=== PATIENT | female | born 1955 | race Caucasian/White ===

== ENCOUNTER → 2016-09-11 | Outpatient (REF) | payer OTHER, BC | LOC: M SFHCPLAZ 15:39 | PROVIDERS: ATTEND Nurse Practitioner Family | DX: Z11.59 Encounter for screening for other viral diseases (principal) ==

== ENCOUNTER → 2016-09-14 | Outpatient (REF) | payer BC | LOC: M SFHCPLAZ 15:42 | PROVIDERS: ATTEND Nurse Practitioner Family | DX: Z11.59 Encounter for screening for other viral diseases (principal) ==

== ENCOUNTER → 2017-04-19 | Outpatient (REF) | payer BC ==
[2017-04-19 13:48] LABS: ALBUMIN 3.9 GM/DL (3.2-5.2); ALKALINE PHOSPHATASE 74 U/L (45-117); ALT/SGPT 31 U/L (12-78); ANION GAP 9 MEQ/L (8-16); AST/SGOT 22 U/L (7-37); BILIRUBIN,TOTAL 0.6 MG/DL (0.2-1.0); BLOOD UREA NITROGEN 12 MG/DL (7-18); CALCIUM LEVEL 9.2 MG/DL (8.8-10.2); CARBON DIOXIDE LEVEL 30 MEQ/L (21-32); CHLORIDE LEVEL 100 MEQ/L (98-107); CHOLESTEROL LEVEL 305 MG/DL (<200); CREATININE FOR GFR 0.71 MG/DL (0.55-1.02); GLOMERULAR FILTRATION RATE > 60.0 (>45); GLUCOSE, FASTING 105 MG/DL (80-110); POTASSIUM SERUM 4.5 MEQ/L (3.5-5.1); SODIUM LEVEL 139 MEQ/L (136-145); TOTAL PROTEIN 7.8 GM/DL (6.4-8.2); TRIGLYCERIDES LEVEL 193 MG/DL (<150)
== END ==
LOC: M SFHCPLAZ 12:36
PROVIDERS: ATTEND Nurse Practitioner Family
DX: E78.2 Mixed hyperlipidemia (principal); E04.1 Nontoxic single thyroid nodule; E55.9 Vitamin D deficiency, unspecified

== ENCOUNTER → 2017-07-19 | Outpatient (REF) | payer BC ==
[2017-07-19 12:44] LABS: ALBUMIN 3.8 GM/DL (3.2-5.2); ALBUMIN/GLOBULIN RATIO 1.15 (1.00-1.93); ALKALINE PHOSPHATASE 68 U/L (45-117); ALT/SGPT 40 U/L (12-78); ANION GAP 6 MEQ/L (8-16); AST/SGOT 19 U/L (7-37); BILIRUBIN,TOTAL 0.6 MG/DL (0.2-1.0); BLOOD UREA NITROGEN 16 MG/DL (7-18); CALCIUM LEVEL 8.8 MG/DL (8.8-10.2); CARBON DIOXIDE LEVEL 30 MEQ/L (21-32); CHLORIDE LEVEL 104 MEQ/L (98-107); CHOLESTEROL LEVEL 188 MG/DL (<200); CHOLESTEROL RISK RATIO 2.764 (<5); CREATININE FOR GFR 0.57 MG/DL (0.55-1.30); GLOMERULAR FILTRATION RATE > 60.0 (>45); GLUCOSE, FASTING 99 MG/DL (70-100); HDL CHOLESTEROL 68 MG/DL (>40); NON-HDL-C 120 MG/DL; POTASSIUM SERUM 4.2 MEQ/L (3.5-5.1); SODIUM LEVEL 140 MEQ/L (136-145); TOTAL PROTEIN 7.1 GM/DL (6.4-8.2); TRIGLYCERIDES LEVEL 140 MG/DL (<150)
[2017-07-19 15:06] LABS: TOTAL 25(OH) VITAMIN D 39.1 NG/ML (30.0-100.0)
== END ==
LOC: M SFHCPLAZ 08:18
DX: E78.2 Mixed hyperlipidemia (principal); E55.9 Vitamin D deficiency, unspecified
CPT/HCPCS: 80053

== ENCOUNTER → 2017-09-13 | Outpatient (CLI) | payer BC | LOC: M WHC 10:25 | DX: Z12.31 Encounter for screening mammogram for malignant neoplasm of breast (principal); Z78.0 Asymptomatic menopausal state; Z80.3 Family history of malignant neoplasm of breast ==

== ENCOUNTER → 2018-09-17 | Outpatient (REF) | payer BC | LOC: M SFHCPLAZ 17:29 | PROVIDERS: ATTEND Nurse Practitioner Family | DX: Z12.4 Encounter for screening for malignant neoplasm of cervix (principal) ==

== ENCOUNTER → 2018-09-17 | Outpatient (CLI) | payer BC ==
--- NOTE | 2018-09-17 14:27 | REPMRS ---
Patient History The patient states she had a clinical breast exam in 08/2018. Family history of breast cancer in paternal grandmother. 3D TOMOSYNTHESIS WAS PERFORMED. Digital Woman Screen Mammo: September 17, 2018 - Exam #: [id number] Bilateral CC and MLO view(s) were taken. Technologist: Aisha Raza, Technologist Prior study comparison: September 13, 2017, digital woman screen mammo performed at [facility]. April 04, 2016, digital woman screen mammo performed at [facility]. FINDINGS: The breast tissue is heterogeneously dense. This may lower the sensitivity of mammography. There has been no change in the appearance of the mammogram from the prior studies. There is a moderate amount of residual fibroglandular tissue which is fairly symmetric. There is no interval development of dominant mass, areas of architectural distortion, or clustered microcalcification typical of malignancy. Assessment: BI-RADS/ACR category 1 mammogram. Negative Mammogram. Recommendation Routine screening mammogram in 1 year (for women over age 40). This mammogram was interpreted with the aid of an FDA-approved computer-aided dectection system. Electronically Signed By: Christoph Fernandes MD 09/17/18 [id number]
== END ==
LOC: M WHC 11:55
PROVIDERS: ATTEND Nurse Practitioner Family
DX: Z12.31 Encounter for screening mammogram for malignant neoplasm of breast (principal); Z80.3 Family history of malignant neoplasm of breast

== ENCOUNTER → 2018-09-27 | Outpatient (CLI) | payer BC ==
--- NOTE | 2018-09-27 14:25 | REP ---
REASON: Pain and swelling secondary to strain. There are no priors. I have been given no history of trauma whatsoever. There is mild to moderate disc space narrowing at every level. Flexion and extension is limited radiographically. The facet joints are well aligned bilaterally. The intervertebral foramina appear ample bilaterally. Vertebral body height and alignment is within normal limits. Degenerative facet and ureterovesical junction changes are present mildly to moderately at every level. IMPRESSION: Chronic changes, as described above. The dens cannot be effectively evaluated secondary to the superimposition of osseous structures and/or dentition on all views. Although this plain radiographic evaluation of the cervical spine shows no evidence of a fracture, it should be remembered that CT is much more sensitive than plain radiography of the C-spine in detecting fractures. If this examination was ordered to rule out a fracture, then CT of the cervical spine is recommended. Electronically Signed by Kg Olvera DO 09/27/2018 02:43 P
== END ==
LOC: M WUC 10:20
PROVIDERS: ATTEND Physician Assistant
DX: M50.30 Other cervical disc degeneration, unspecified cervical region (principal)

== ENCOUNTER → 2018-10-10 | Outpatient (REF) | payer BC | LOC: M LAB REF 11:46 | PROVIDERS: ATTEND Surgery | DX: L72.3 Sebaceous cyst (principal) ==

== ENCOUNTER → 2018-10-17 | Outpatient (REF) | payer BC | LOC: M LAB REF 09:37 | PROVIDERS: ATTEND Surgery | DX: L82.1 Other seborrheic keratosis (principal) ==

== ENCOUNTER 2018-12-16 11:45 | Day surgery (SDC) | payer BC ==
[~2018-12-16] VITALS: Ht 160 cm; Wt 75.3 kg
[~2018-12-16 11:45] MED LIST: ATOR1TAB19 PO; LIDOCAINE 2% INJ 100 MG/5 ML SDV (FOR ANES.) As Ordered ONE; NS 1,000 ML IV ONE; PROPOFOL 200 MG/20 ML VIAL As Ordered ONE; VITAD1000T PO
[2018-12-16] MEDS ORDERED: PROPOFOL 500 MG/50 ML VIAL As Ordered ONE (13:50)
--- NOTE | 2018-12-16 14:02 | ROOR ---
Patient Name: Sathish Hernandez Procedure Date: 12/16/2018 1:34 PM Date of : 1955 Age: 63 Room: [facility] Gender: Female Note Status: Finalized Procedure: Total Colonoscopy to Cecum + Cold Snare Polypectomy + Hemoclips Indications: Screening for colorectal malignant neoplasm Providers: Piero Burnett MD Referring MD: Leigha Hartman NP Requesting Provider: Medicines: Monitored Anesthesia Care Complications: No immediate complications. Procedure: Pre-Anesthesia Assessment: - The heart rate, respiratory rate, oxygen saturations, blood pressure, adequacy of pulmonary ventilation, and response to care were monitored throughout the procedure. The Colonoscope was introduced through the anus and advanced to the cecum, identified by appendiceal orifice and ileocecal valve. The colonoscopy was performed without difficulty. The patient tolerated the procedure well. The quality of the bowel preparation was excellent. Findings: The perianal and digital rectal examinations were normal. Non-bleeding internal hemorrhoids were found during retroflexion. The hemorrhoids were small and Grade I (internal hemorrhoids that do not prolapse). Multiple small and large-mouthed diverticula were found in the recto-sigmoid colon, sigmoid colon and descending colon. A medium polyp was found at 10 cm proximal to the anus. The polyp was semi-pedunculated. The polyp was removed with a cold snare. Resection and retrieval were complete. To prevent bleeding after the polypectomy, one hemostatic clip was successfully placed (MR conditional). There was no bleeding at the end of the procedure. A diminutive polyp was found in the transverse colon. The polyp was sessile. The polyp was removed with a cold snare. Resection and retrieval were complete. The exam was otherwise without abnormality on direct and retroflexion views. Impression: - Non-bleeding internal hemorrhoids. - Diverticulosis in the recto-sigmoid colon, in the sigmoid colon and in the descending colon. - One medium polyp at 10 cm proximal to the anus, removed with a cold snare. Resected and retrieved. Clip (MR conditional) was placed. - One diminutive polyp in the transverse colon, removed with a cold snare. Resected and retrieved. - The examination was otherwise normal on direct and retroflexion views. - The exam was otherwise normal to the cecum. Recommendation: - Patient has a contact number available for emergencies. The signs and symptoms of potential delayed complications were discussed with the patient. Return to normal activities tomorrow. Written discharge instructions were provided to the patient. - High fiber diet. - Discharge patient to home. - Continue present medications. - Await pathology results. - Telephone GI clinic for pathology results in 1 week. - Repeat colonoscopy in 5 years for surveillance based on pathology results. - Return to referring physician. - Check Portal Online for Path Results.([email or web address]) - The findings and recommendations were discussed with the patient's family. Piero Burnett MD Piero Burnett MD 12/16/2018 2:01:56 PM Electronically signed by Piero Burnett MD Number of Addenda: 0 Note Initiated On: 12/16/2018 1:34 PM Estimated Blood Loss: Estimated blood loss: none.
[2018-12-16 14:26] VITALS: BP 103/67
== END 2018-12-16 14:29 | disposition home or self-care (01) ==
LOC: M OPP 11:45
PROVIDERS: ATTEND Internal Medicine Gastroenterology
DX: Z12.11 Encounter for screening for malignant neoplasm of colon (principal); K64.0 First degree hemorrhoids; K57.30 Diverticulosis of large intestine without perforation or abscess without bleeding; D12.8 Benign neoplasm of rectum; D12.3 Benign neoplasm of transverse colon; E78.5 Hyperlipidemia, unspecified; K44.9 Diaphragmatic hernia without obstruction or gangrene; K21.9 Gastro-esophageal reflux disease without esophagitis; R12 Heartburn; M19.90 Unspecified osteoarthritis, unspecified site; R06.83 Snoring; F17.210 Nicotine dependence, cigarettes, uncomplicated; Z79.899 Other long term (current) drug therapy

== ENCOUNTER → 2019-01-23 | Outpatient (REF) | payer BC ==
[~2019-01-23] MED LIST changes: +CHOL100029 PO; -LIDOCAINE 2% INJ 100 MG/5 ML SDV (FOR ANES.) As Ordered ONE; -NS 1,000 ML IV ONE; -PROPOFOL 200 MG/20 ML VIAL As Ordered ONE; -VITAD1000T PO
[2019-01-23 13:38] LABS: ALBUMIN 3.9 GM/DL (3.2-5.2); ALT/SGPT 32 U/L (12-78); BILIRUBIN,TOTAL 0.4 MG/DL (0.2-1.0); BLOOD UREA NITROGEN 15 MG/DL (7-18); CALCIUM LEVEL 9.7 MG/DL (8.8-10.2); CARBON DIOXIDE LEVEL 29 MEQ/L (21-32); CHLORIDE LEVEL 103 MEQ/L (98-107); CHOLESTEROL LEVEL 209 MG/DL (<200); CREATININE FOR GFR 0.62 MG/DL (0.55-1.30); GLOMERULAR FILTRATION RATE > 60.0 (>45); GLUCOSE, FASTING 108 MG/DL (70-100); HDL CHOLESTEROL 86 MG/DL (>40); LDL CHOLESTEROL 103 MG/DL (<100); NON-HDL-C 123 MG/DL; POTASSIUM SERUM 4.4 MEQ/L (3.5-5.1); SODIUM LEVEL 139 MEQ/L (136-145); TOTAL 25(OH) VITAMIN D 40.9 NG/ML (30.0-100.0); TOTAL PROTEIN 7.4 GM/DL (6.4-8.2); TRIGLYCERIDES LEVEL 100 MG/DL (<150)
== END ==
LOC: M SFHCPLAZ 09:48
PROVIDERS: ATTEND Nurse Practitioner Family
DX: E78.2 Mixed hyperlipidemia (principal); E55.9 Vitamin D deficiency, unspecified

== ENCOUNTER → 2019-09-18 | Outpatient (CLI) | payer BC ==
--- NOTE | 2019-09-18 12:37 | REPMRS ---
Patient History The patient states she had a clinical breast exam in August 2019. Family history of breast cancer in paternal grandmother. Digital Woman Screen Mammo: September 18, 2019 - Exam #: [id number] Bilateral CC and MLO view(s) were taken. Technologist: Marlin Connell, Technologist Prior study comparison: September 17, 2018, bilateral digital woman screen mammo performed at [facility]. September 13, 2017, digital woman screen mammo performed at [facility]. April 04, 2016, digital woman screen mammo performed at [facility]. FINDINGS: There are scattered fibroglandular densities. The Volpara volumetric breast density category is: B. There is a moderate amount of residual fibroglandular tissue which is fairly symmetric. There is no interval development of dominant mass, architectural distortion, or grouped microcalcification typical of malignancy. There has been no change in the appearance of the mammogram from the prior studies. 3-D tomosynthesis shows no additional findings. Assessment: BI-RADS/ACR category 1 mammogram. Negative Mammogram. Recommendation Routine screening mammogram of both breasts in 1 year (for women over age 40). This patient's Lifetime Breast Cancer RIsk is estimated at 10.1 %. This mammogram was interpreted with the aid of an FDA-approved computer-aided dectection system. Electronically Signed By: Ryan Mendez MD 09/18/19 [id number]
== END ==
LOC: M WHC 11:15
PROVIDERS: ATTEND Nurse Practitioner Family
DX: Z12.31 Encounter for screening mammogram for malignant neoplasm of breast (principal)

== ENCOUNTER → 2019-12-11 | Outpatient (REF) | payer BC | LOC: M PLALAB 09:47 | PROVIDERS: ATTEND Nurse Practitioner Family | DX: M79.10 Myalgia, unspecified site (principal); E78.2 Mixed hyperlipidemia; E04.1 Nontoxic single thyroid nodule; E55.9 Vitamin D deficiency, unspecified ==

== ENCOUNTER → 2020-02-18 | Outpatient (CLI) | payer BC ==
[2020-02-18 14:12] LABS: ALBUMIN 3.7 GM/DL (3.2-5.2); ALT/SGPT 39 U/L (12-78); BILIRUBIN,TOTAL 0.6 MG/DL (0.2-1.0); BLOOD UREA NITROGEN 12 MG/DL (7-18); CALCIUM LEVEL 9.4 MG/DL (8.8-10.2); CARBON DIOXIDE LEVEL 31 MEQ/L (21-32); CHLORIDE LEVEL 103 MEQ/L (98-107); CHOLESTEROL LEVEL 181 MG/DL (<200); CHOLESTEROL RISK RATIO 2.549 (<5); CPK CREATINE PHOSPHOKINASE 75 U/L (26-192); CREATININE FOR GFR 0.68 MG/DL (0.55-1.30); GLOMERULAR FILTRATION RATE > 60.0 (>45); GLUCOSE, FASTING 105 MG/DL (70-100); HDL CHOLESTEROL 71 MG/DL (>40); LDL CHOLESTEROL 88 MG/DL (<100); NON-HDL-C 110 MG/DL; POTASSIUM SERUM 4.5 MEQ/L (3.5-5.1); SODIUM LEVEL 138 MEQ/L (136-145); TOTAL PROTEIN 7.3 GM/DL (6.4-8.2); TRIGLYCERIDES LEVEL 111 MG/DL (<150)
== END ==
LOC: M PLALAB 10:10
PROVIDERS: ATTEND Nurse Practitioner Family
DX: E78.2 Mixed hyperlipidemia (principal)

== ENCOUNTER → 2020-04-25 | Outpatient (CLI) | payer BC ==
[~2020-04-25] MED LIST changes: +D31000TA2 PO
== END ==
LOC: M LABSMTC 08:36
PROVIDERS: ATTEND Anesthesiology
DX: Z11.59 Encounter for screening for other viral diseases (principal)

== ENCOUNTER 2020-04-30 11:09 | Day surgery (SDC) | payer BC ==
[~2020-04-30] VITALS: Ht 157.5 cm; Wt 74.4 kg
[~2020-04-30 11:09] MED LIST changes: +LIDOCAINE 2% 100MG/5ML SDV (FOR ANES.) As Ordered ONE; +NS 1,000 ML IV ONE; +propofoL 200 MG/20 ML VIAL As Ordered ONE
[2020-04-30] MEDS ORDERED: propofoL 200 MG/20 ML VIAL As Ordered ONE (11:49)
--- NOTE | 2020-04-30 12:03 | ROOR ---
Patient Name: Sathish Hernandez Procedure Date: 04/30/2020 11:42 AM Date of : 1955 Age: 64 Room: [facility] Gender: Female Note Status: Finalized Procedure: Total Colonoscopy to Cecum Indications: High risk colon cancer surveillance: Personal history of adenoma with villous component Providers: Piero Burnett MD Referring MD: Leigha Hartman NP Requesting Provider: Medicines: Monitored Anesthesia Care Complications: No immediate complications. Procedure: Pre-Anesthesia Assessment: - The heart rate, respiratory rate, oxygen saturations, blood pressure, adequacy of pulmonary ventilation, and response to care were monitored throughout the procedure. The Colonoscope was introduced through the anus and advanced to the cecum, identified by appendiceal orifice and ileocecal valve. The colonoscopy was performed without difficulty. The patient tolerated the procedure well. The quality of the bowel preparation was excellent. Findings: The perianal and digital rectal examinations were normal. Non-bleeding internal hemorrhoids were found during retroflexion. The hemorrhoids were small and Grade I (internal hemorrhoids that do not prolapse). Multiple small and large-mouthed diverticula were found in the recto-sigmoid colon, sigmoid colon and descending colon. The exam was otherwise without abnormality on direct and retroflexion views. Impression: - Non-bleeding internal hemorrhoids. - Diverticulosis in the recto-sigmoid colon, in the sigmoid colon and in the descending colon. - The examination was otherwise normal on direct and retroflexion views. - No specimens collected. - The exam was otherwise normal to the cecum. Recommendation: - Patient has a contact number available for emergencies. The signs and symptoms of potential delayed complications were discussed with the patient. Return to normal activities tomorrow. Written discharge instructions were provided to the patient. - High fiber diet. - Discharge patient to home. - Continue present medications. - Repeat colonoscopy in 5 years for surveillance. - Return to referring physician. - The findings and recommendations were discussed with the patient. Procedure Code(s): --- Professional --- G0105, Colorectal cancer screening; colonoscopy on individual at high risk Diagnosis Code(s): --- Professional --- Z86.010, Personal history of colonic polyps K64.0, First degree hemorrhoids K57.30, Diverticulosis of large intestine without perforation or abscess without bleeding CPT copyright 2019 [employer]. All rights reserved. The codes documented in this report are preliminary and upon hr administrator review may be revised to meet current compliance requirements. Piero Burnett MD Piero Burnett MD 04/30/2020 12:03:02 PM Electronically signed by Piero Burnett MD Number of Addenda: 0 Note Initiated On: 04/30/2020 11:42 AM Estimated Blood Loss: Estimated blood loss: none.
[2020-04-30 12:36] VITALS: BP 106/51
== END 2020-04-30 12:38 | disposition home or self-care (01) ==
LOC: M OPP 11:09
PROVIDERS: ATTEND Internal Medicine Gastroenterology
DX: Z12.11 Encounter for screening for malignant neoplasm of colon (principal); Z86.010 Personal history of colon polyps; K64.0 First degree hemorrhoids; K57.30 Diverticulosis of large intestine without perforation or abscess without bleeding; E78.5 Hyperlipidemia, unspecified; K44.9 Diaphragmatic hernia without obstruction or gangrene; M19.90 Unspecified osteoarthritis, unspecified site; Z79.899 Other long term (current) drug therapy

== ENCOUNTER → 2020-09-10 | Outpatient (REF) | payer MEDICARE ==
[~2020-09-10] MED LIST changes: -LIDOCAINE 2% 100MG/5ML SDV (FOR ANES.) As Ordered ONE; -NS 1,000 ML IV ONE; -propofoL 200 MG/20 ML VIAL As Ordered ONE
[2020-09-10 14:09] LABS: ALBUMIN 4.2 GM/DL (3.2-5.2); ALT/SGPT 35 U/L (12-78); BILIRUBIN,TOTAL 0.6 MG/DL (0.2-1.0); BLOOD UREA NITROGEN 15 MG/DL (7-18); CALCIUM LEVEL 9.9 MG/DL (8.8-10.2); CARBON DIOXIDE LEVEL 30 MEQ/L (21-32); CHLORIDE LEVEL 102 MEQ/L (98-107); CREATININE FOR GFR 0.66 MG/DL (0.55-1.30); GLOMERULAR FILTRATION RATE > 60.0 (>45); GLUCOSE, FASTING 106 MG/DL (70-100); POTASSIUM SERUM 4.1 MEQ/L (3.5-5.1); SODIUM LEVEL 137 MEQ/L (136-145); TOTAL PROTEIN 7.9 GM/DL (6.4-8.2)
[2020-09-10 14:16] LABS: TOTAL 25(OH) VITAMIN D 54.3 NG/ML (30.0-100.0)
== END ==
LOC: M PLALAB 10:50
PROVIDERS: ATTEND Nurse Practitioner Family
DX: E78.2 Mixed hyperlipidemia (principal); E55.9 Vitamin D deficiency, unspecified

== ENCOUNTER → 2020-10-12 | Outpatient (CLI) | payer MEDICARE ==
--- NOTE | 2020-10-12 15:44 | REPMRS ---
Patient History The patient states she had a clinical breast exam in August 2020. Family history of breast cancer in paternal grandmother. No breast complaints Patient signed the MRS sheet 1st covid vaccine 07/16/20-left arm-Moderna 2nd covid vaccine 08/10/20-left arm Best views possible on MLO's due to neck arthritis Priors on PACS Patient Identification Verified Digital Woman Screen Mammo: October 12, 2020 - Exam #: [id number] Bilateral CC and MLO view(s) were taken. Technologist: Beatriz Vanessa, Technologist Prior study comparison: September 18, 2019, bilateral digital woman screen mammo performed at [facility]. September 17, 2018, bilateral digital woman screen mammo performed at [facility]. September 13, 2017, digital woman screen mammo performed at [facility]. FINDINGS: There are scattered fibroglandular densities. The Volpara volumetric breast density category is: B. There is a moderate amount of residual fibroglandular tissue which is fairly symmetric. There is no interval development of dominant mass, architectural distortion, or grouped microcalcification typical of malignancy. There has been no change in the appearance of the mammogram from the prior studies. 3-D tomosynthesis shows no additional findings. Assessment: BI-RADS/ACR category 1 mammogram. Negative Mammogram. Recommendation Routine screening mammogram of both breasts in 1 year (for women over age 40). This patient's [facility] Lifetime Breast Cancer RIsk is estimated at 9.6 %. This mammogram was interpreted with the aid of an FDA-approved computer-aided dectection system. Electronically Signed By: Ryan Mendez MD 10/12/20 [id number]
== END ==
LOC: M WHC 13:25
PROVIDERS: ATTEND Nurse Practitioner Family
DX: Z12.31 Encounter for screening mammogram for malignant neoplasm of breast (principal)

== ENCOUNTER → 2021-08-11 | Outpatient (CLI) | payer MEDICARE ==
[~2021-08-11] MED LIST changes: -D31000TA2 PO; +VITA100093 PO
[2021-08-11 13:36] LABS: HEMOGLOBIN A1c 6.2 %
[2021-08-11 13:43] LABS: ALBUMIN 4.1 GM/DL (3.2-5.2); ALT/SGPT 31 U/L (12-78); BILIRUBIN,TOTAL 0.5 MG/DL (0.2-1.0); BLOOD UREA NITROGEN 13 MG/DL (7-18); CALCIUM LEVEL 9.6 MG/DL (8.8-10.2); CARBON DIOXIDE LEVEL 33 MEQ/L (21-32); CHLORIDE LEVEL 103 MEQ/L (98-107); CHOLESTEROL LEVEL 182 MG/DL (<200); CHOLESTEROL RISK RATIO 2.333 (<5); CREATININE FOR GFR 0.67 MG/DL (0.55-1.30); GLOMERULAR FILTRATION RATE > 60.0 (>45); GLUCOSE, FASTING 118 MG/DL (70-100); HDL CHOLESTEROL 78 MG/DL (>40); LDL CHOLESTEROL 83 MG/DL (<100); NON-HDL-C 104 MG/DL; POTASSIUM SERUM 4.3 MEQ/L (3.5-5.1); SODIUM LEVEL 139 MEQ/L (136-145); TOTAL PROTEIN 7.5 GM/DL (6.4-8.2); TRIGLYCERIDES LEVEL 105 MG/DL (<150)
== END ==
LOC: M PLALAB 10:06
DX: E78.2 Mixed hyperlipidemia (principal); R73.01 Impaired fasting glucose

== ENCOUNTER → 2021-10-27 | Outpatient (CLI) | payer MEDICARE | LOC: M WHC 09:21 | PROVIDERS: ATTEND Physician Assistant | DX: Z12.31 Encounter for screening mammogram for malignant neoplasm of breast (principal); Z13.820 Encounter for screening for osteoporosis; Z80.3 Family history of malignant neoplasm of breast; M85.89 Other specified disorders of bone density and structure, multiple sites ==

== ENCOUNTER → 2022-07-27 | Outpatient (CLI) | payer MEDICARE ==
[2022-07-27 14:20] LABS: BASO % 0.7 % (0.0-1.0); EOS # 0.1 10^3/uL (0.0-0.5); EOS % 3.2 % (0.0-3.0); HEMATOCRIT 44.3 % (36.0-47.0); HEMOGLOBIN 14.4 g/dl (12.0-15.5); LYMPH # 2.1 10^3/uL (1.5-5.0); LYMPH % 53.1 % (24.0-44.0); MEAN CORPUSCULAR HEMOGLOBIN 32.1 pg (27.0-33.0); MEAN CORPUSCULAR HGB CONC 32.5 g/dl (32.0-36.5); MEAN CORPUSCULAR VOLUME 98.7 fl (80.0-96.0); MONO # 0.3 10^3/uL (0.0-0.8); MONO % 8.4 % (2.0-8.0); NEUTROPHILS # 1.4 10^3/uL (1.5-8.5); NEUTROPHILS % 34.6 % (36.0-66.0); PLATELET COUNT, AUTOMATED 218 10^3/uL (150-450); RED BLOOD COUNT 4.49 10^6/uL (4.00-5.40)
[2022-07-27 14:53] LABS: ALBUMIN 3.9 G/DL (3.2-5.2); ALKALINE PHOSPHATASE 74 U/L (46-116); ALT/SGPT 36 U/L (7.0-40); AST/SGOT 24 U/L (<34); BILIRUBIN,TOTAL 0.8 MG/DL (0.3-1.2); BLOOD UREA NITROGEN 14 MG/DL (9-23); CALCIUM LEVEL 9.4 MG/DL (8.3-10.6); CARBON DIOXIDE LEVEL 32 MMOL/L (20-31); CHLORIDE LEVEL 104 MMOL/L (98-107); CHOLESTEROL LEVEL 182 MG/DL (<200); CHOLESTEROL RISK RATIO 2.67 (<5); CREATININE FOR GFR 0.64 MG/DL (0.55-1.30); GLOMERULAR FILTRATION RATE > 60.0 (>45); GLUCOSE, FASTING 107 MG/DL (74-106); HDL CHOLESTEROL 68.1 MG/DL (>40); LDL CHOLESTEROL 94.7 MG/DL (<100); NON-HDL-C 113.9 MG/DL; POTASSIUM SERUM 4.4 MMOL/L (3.5-5.1); SODIUM LEVEL 141 MMOL/L (136-145); TOTAL PROTEIN 7.3 G/DL (5.7-8.2); TRIGLYCERIDES LEVEL 96 MG/DL (<150)
[2022-07-27 14:56] LABS: FREE T4 1.19 NG/DL (0.89-1.76)
[2022-07-27 14:57] LABS: THYROID STIMULATING HORMONE 1.342 uIU/ML (0.55-4.78)
== END ==
LOC: M PLALAB 10:21
PROVIDERS: ATTEND Physician Assistant
DX: E04.1 Nontoxic single thyroid nodule (principal); R73.01 Impaired fasting glucose; E78.2 Mixed hyperlipidemia

== ENCOUNTER → 2023-02-01 | Outpatient (CLI) | payer MEDICARE | LOC: M WHC 15:00 | PROVIDERS: ATTEND Physician Assistant | DX: Z12.31 Encounter for screening mammogram for malignant neoplasm of breast (principal) ==

== ENCOUNTER → 2023-07-06 | Outpatient (CLI) | payer MEDICARE ==
[2023-07-06 11:40] LABS: BASO % 0.4 % (0.0-1.0); EOS # 0.1 10^3/uL (0.0-0.5); HEMATOCRIT 41.8 % (36.0-47.0); HEMOGLOBIN 14.3 g/dl (12.0-15.5); LYMPH # 2.2 10^3/uL (1.5-5.0); LYMPH % 47.7 % (24.0-44.0); MEAN CORPUSCULAR HEMOGLOBIN 33.3 pg (27.0-33.0); MEAN CORPUSCULAR HGB CONC 34.2 g/dl (32.0-36.5); MEAN CORPUSCULAR VOLUME 97.4 fl (80.0-96.0); MONO # 0.3 10^3/uL (0.0-0.8); MONO % 7.1 % (2.0-8.0); NEUTROPHILS # 1.9 10^3/uL (1.5-8.5); NEUTROPHILS % 41.8 % (36.0-66.0); PLATELET COUNT, AUTOMATED 187 10^3/uL (150-450); RED BLOOD COUNT 4.29 10^6/uL (4.00-5.40); WHITE BLOOD COUNT 4.7 10^3/uL (4.0-10.0)
[2023-07-06 11:54] LABS: HEMOGLOBIN A1c 5.8 % (4.0-6.0)
[2023-07-06 12:08] LABS: THYROID STIMULATING HORMONE 3.249 uIU/ML (0.55-4.78)
[2023-07-06 12:09] LABS: ALBUMIN 3.8 G/DL (3.2-5.2); ALKALINE PHOSPHATASE 58 U/L (46-116); ALT/SGPT 27 U/L (7.0-40); AST/SGOT 19 U/L (<34); BILIRUBIN,TOTAL 0.5 MG/DL (0.3-1.2); BLOOD UREA NITROGEN 15 MG/DL (9-23); CARBON DIOXIDE LEVEL 30 MMOL/L (20-31); CHLORIDE LEVEL 105 MMOL/L (98-107); CHOLESTEROL LEVEL 174 MG/DL (<200); CHOLESTEROL RISK RATIO 2.59 (<5); CREATININE FOR GFR 0.66 MG/DL (0.55-1.30); GLOMERULAR FILTRATION RATE > 60.0 (>45); GLUCOSE, FASTING 113 MG/DL (74-106); HDL CHOLESTEROL 67.1 MG/DL (>40); LDL CHOLESTEROL 85.9 MG/DL (<100); NON-HDL-C 106.9 MG/DL; POTASSIUM SERUM 4.3 MMOL/L (3.5-5.1); SODIUM LEVEL 138 MMOL/L (136-145); TOTAL 25(OH) VITAMIN D 71.7 NG/ML (20.0-100.0); TRIGLYCERIDES LEVEL 105 MG/DL (<150)
[2023-07-06 12:11] LABS: FREE T4 1.03 NG/DL (0.89-1.76)
== END ==
LOC: M PLALAB 08:29
PROVIDERS: ATTEND Physician Assistant
DX: E55.9 Vitamin D deficiency, unspecified (principal); E04.1 Nontoxic single thyroid nodule; E78.2 Mixed hyperlipidemia; E66.9 Obesity, unspecified; R73.03 Prediabetes

== ENCOUNTER → 2023-07-19 | Outpatient (CLI) | payer MEDICARE | LOC: M PLAIMG 11:49 → M PLALAB 11:49 | PROVIDERS: ATTEND Physician Assistant | DX: M50.31 Other cervical disc degeneration, high cervical region (principal); M50.321 Other cervical disc degeneration at C4-C5 level; M50.322 Other cervical disc degeneration at C5-C6 level; M50.323 Other cervical disc degeneration at C6-C7 level; M51.36 Other intervertebral disc degeneration, lumbar region; M16.0 Bilateral primary osteoarthritis of hip; M79.602 Pain in left arm ==

== ENCOUNTER → 2024-02-05 | Outpatient (CLI) | payer MEDICARE | LOC: M WHC 13:57 | PROVIDERS: ATTEND Physician Assistant | DX: Z12.31 Encounter for screening mammogram for malignant neoplasm of breast (principal); M47.819 Spondylosis without myelopathy or radiculopathy, site unspecified; Z79.51 Long term (current) use of inhaled steroids ==

== ENCOUNTER → 2024-02-26 | Outpatient (CLI) | payer MEDICARE | LOC: M SLEEP HO 11:34 | PROVIDERS: ATTEND Physician Assistant | DX: G47.33 Obstructive sleep apnea (adult) (pediatric) (principal) ==

== ENCOUNTER → 2024-07-15 | Outpatient (CLI) | payer MEDICARE ==
[2024-07-15 14:47] LABS: BASO % 0.3 % (0.0-1.0); EOS % 1.1 % (0.0-3.0); HEMATOCRIT 42.7 % (36.0-47.0); HEMOGLOBIN 14.6 g/dl (12.0-15.5); LYMPH # 1.9 10^3/uL (1.5-5.0); LYMPH % 52.3 % (24.0-44.0); MEAN CORPUSCULAR HEMOGLOBIN 32.8 pg (27.0-33.0); MEAN CORPUSCULAR HGB CONC 34.2 g/dl (32.0-36.5); MONO # 0.2 10^3/uL (0.0-0.8); MONO % 6.5 % (2.0-8.0); NEUTROPHILS # 1.5 10^3/uL (1.5-8.5); NEUTROPHILS % 39.8 % (36.0-66.0); PLATELET COUNT, AUTOMATED 195 10^3/uL (150-450); RED BLOOD COUNT 4.45 10^6/uL (4.00-5.40); WHITE BLOOD COUNT 3.7 10^3/uL (4.0-10.0)
[2024-07-15 15:07] LABS: HEMOGLOBIN A1c 6.2 % (4.0-6.0)
[2024-07-15 15:15] LABS: ALBUMIN 4.1 G/DL (3.2-5.2); ALKALINE PHOSPHATASE 56 U/L (35-104); ALT/SGPT 33 U/L (7.0-40); AST/SGOT 28 U/L (<34); BILIRUBIN,TOTAL 0.7 MG/DL (0.3-1.2); BLOOD UREA NITROGEN 12 MG/DL (9-23); CALCIUM LEVEL 9.4 MG/DL (8.3-10.6); CARBON DIOXIDE LEVEL 28 MMOL/L (20-31); CHLORIDE LEVEL 103 MMOL/L (98-107); CHOLESTEROL LEVEL 161 MG/DL (<200); CHOLESTEROL RISK RATIO 2.85 (<5); GLOMERULAR FILTRATION RATE > 60.0 (>45); GLUCOSE, FASTING 103 MG/DL (74-106); HDL CHOLESTEROL 56.3 MG/DL (>40); LDL CHOLESTEROL 61.1 MG/DL (<100); NON-HDL-C 104.7 MG/DL; POTASSIUM SERUM 4.2 MMOL/L (3.5-5.1); SODIUM LEVEL 140 MMOL/L (136-145); TOTAL PROTEIN 7.9 G/DL (5.7-8.2); TRIGLYCERIDES LEVEL 218 MG/DL (<150)
[2024-07-15 15:16] LABS: THYROID STIMULATING HORMONE 1.158 uIU/ML (0.55-4.78)
[2024-07-15 15:17] LABS: FREE T4 1.63 NG/DL (0.89-1.76)
== END ==
LOC: M PLALAB 11:06
DX: R73.01 Impaired fasting glucose (principal); J06.9 Acute upper respiratory infection, unspecified; E04.1 Nontoxic single thyroid nodule; E78.2 Mixed hyperlipidemia

== ENCOUNTER → 2024-08-05 | Outpatient (CLI) | payer MEDICARE | LOC: M SOG 10:04 | PROVIDERS: ATTEND Physician Assistant | DX: M79.645 Pain in left finger(s) (principal) ==

== ENCOUNTER 2024-09-03 06:37 | Day surgery (SDC) | payer MEDICARE ==
[~2024-09-03] VITALS: Ht 157.5 cm; Wt 78.0 kg
[~2024-09-03 06:37] MED LIST changes: +D-3-50003 PO; +EQ S0.65; +META0.52 PO; +MIRA3350 PO
[2024-09-03] MEDS ORDERED: propofoL 200 MG/20 ML VIAL As Ordered ONE (07:04)
[2024-09-03 08:16] VITALS: BP 127/76; O2SAT 97
== END 2024-09-03 08:16 | disposition home or self-care (01) ==
LOC: M OPP 06:37
PROVIDERS: ATTEND Internal Medicine Gastroenterology
DX: Z12.11 Encounter for screening for malignant neoplasm of colon (principal); K57.30 Diverticulosis of large intestine without perforation or abscess without bleeding; K64.0 First degree hemorrhoids; Z86.0100 Personal history of colon polyps, unspecified; G47.30 Sleep apnea, unspecified; Z79.899 Other long term (current) drug therapy; F17.210 Nicotine dependence, cigarettes, uncomplicated

== ENCOUNTER → 2025-02-03 | Outpatient (CLI) | payer MEDICARE ==
[2025-02-03 15:53] LABS: BASO # 0.0 10^3/uL (0.0-0.2); BASO % 0.5 % (0.0-1.0); EOS # 0.1 10^3/uL (0.0-0.5); EOS % 2.8 % (0.0-3.0); LYMPH # 2.0 10^3/uL (1.5-5.0); LYMPH % 50.5 % (24.0-44.0); MONO # 0.3 10^3/uL (0.0-0.8); MONO % 8.6 % (2.0-8.0); NEUTROPHILS # 1.5 10^3/uL (1.5-8.5); NEUTROPHILS % 37.6 % (36.0-66.0); PLATELET COUNT, AUTOMATED 197 10^3/uL (150-450)
[2025-02-03 15:57] LABS: FREE T4 1.23 NG/DL (0.89-1.76)
[2025-02-03 15:58] LABS: ALT/SGPT 19 U/L (7.0-40); AST/SGOT 19 U/L (<34); C REACTIVE PROTEIN QUANTITATIV < 0.50 MG/DL (<1.0); CALCIUM LEVEL 9.2 MG/DL (8.3-10.6); CARBON DIOXIDE LEVEL 32 MMOL/L (20-31); CHLORIDE LEVEL 102 MMOL/L (98-107); CHOLESTEROL LEVEL 159 MG/DL (<200); CHOLESTEROL RISK RATIO 2.48 (<5); CREATININE FOR GFR 0.72 MG/DL (0.55-1.30); GLOMERULAR FILTRATION RATE > 90.0 (>45); LDL CHOLESTEROL 68.5 MG/DL (<100); NON-HDL-C 94.9 MG/DL; POTASSIUM SERUM 4.3 MMOL/L (3.5-5.1); SODIUM LEVEL 141 MMOL/L (136-145); TOTAL 25(OH) VITAMIN D 74.5 NG/ML (20.0-100.0); TRIGLYCERIDES LEVEL 132 MG/DL (<150); VITAMIN B12 LEVEL 322 PG/ML (211-911)
[2025-02-03 16:04] LABS: ESTIMATED AVERAGE GLUCOSE 126.0 MG/DL (60-110)
[2025-02-03 16:39] LABS: ERYTHROCYTE SEDIMENTATION RATE 30 mm/hr (0-30)
== END ==
LOC: M PLALAB 09:30
DX: D72.819 Decreased white blood cell count, unspecified (principal); E55.9 Vitamin D deficiency, unspecified; E04.1 Nontoxic single thyroid nodule; R73.01 Impaired fasting glucose; E78.2 Mixed hyperlipidemia

== ENCOUNTER → 2025-02-05 | Outpatient (CLI) | payer MEDICARE | LOC: M WHC 09:32 | DX: Z12.31 Encounter for screening mammogram for malignant neoplasm of breast (principal) ==